=== PATIENT | male | born 1955 | race Caucasian/White ===

== ENCOUNTER → 2017-01-11 | Outpatient (CLI) | payer OTHER, MEDICARE | END | disposition home or self-care (01) | LOC: C.RDSM 12:34 | PROVIDERS: ATTEND Orthopaedic Surgery Sports Medicine | DX: M25.532 Pain in left wrist (principal) ==

== ENCOUNTER → 2017-05-23 | Outpatient (CLI) | payer OTHER, MEDICARE ==
[~2017-05-23] MED LIST: AMLO-114 PO; ASPI325T39 PO; ATOR-22 PO; BENA20TA14 PO; FLV400 PO; GABA-113 PO; HMLIS SQ; INSU1.2I SQ; LSX20 PO; SITA50TA9 PO
--- NOTE | 2017-05-23 16:48 | DIAGNOSTIC IMAGING REPORT ---
R ANKLE MIN 3 VIEWS CLINICAL HISTORY: 61 years-old Male presenting with RIGHT DISTAL FIBULA FX. TECHNIQUE: Frontal, mortise, and lateral views of the right ankle were obtained. COMPARISON: 05/21/2017. FINDINGS: Obliquely oriented nondisplaced fracture of the distal fibula, which appears to involve the syndesmosis. No widening of the medial clear space or additional fracture is evident. Posterior malleolus intact. Degenerative change at the ankle mortise noted. Prominent inferior calcaneal enthesophyte. Os trigonum noted. Atherosclerosis and multiple phleboliths evident. Mild diffuse subcutaneous edema suggested. IMPRESSION: Unchanged appearance of the nondisplaced Salas B fibular fracture (supination external rotation stage II injury). Electronically signed by: Gideon Patel M.D. 05/23/2017 4:47 PM Dictated Date/Time: 05/23/2017 4:44 PM
== END | disposition home or self-care (01) ==
LOC: C.RDSM 10:26
PROVIDERS: ATTEND Physician Assistant
DX: S82.844A Nondisplaced bimalleolar fracture of right lower leg, initial encounter for closed fracture (principal); X58.XXXA Exposure to other specified factors, initial encounter

== ENCOUNTER → 2017-05-30 | Outpatient (CLI) | payer OTHER, MEDICARE ==
--- NOTE | 2017-05-30 15:08 | DIAGNOSTIC IMAGING REPORT ---
R ANKLE MIN 3 VIEWS CLINICAL HISTORY: 61 years-old Male presenting with F/U RIGHT ANKLE FX. TECHNIQUE: Frontal, mortise, and lateral views of the right ankle were obtained. COMPARISON: 05/23/2017. FINDINGS: Persistent fracture plane evident in the distal fibula, which is nondisplaced and obliquely oriented at the level of the tibiofibular syndesmosis. No new malalignment. Bridging callus formation suggested. Ankle mortise intact. No medial malleolus fracture is evident. Os trigonum noted. Atherosclerosis. IMPRESSION: Slight interval healing of the nondisplaced Salas B fibular fracture (supination external rotation stage II injury). No new malalignment. Electronically signed by: Gideon Patel M.D. 05/30/2017 3:07 PM Dictated Date/Time: 05/30/2017 3:05 PM
== END | disposition home or self-care (01) ==
LOC: C.RDSM 13:00
PROVIDERS: ATTEND Physician Assistant
DX: S82.831D Other fracture of upper and lower end of right fibula, subsequent encounter for closed fracture with routine healing (principal); X58.XXXD Exposure to other specified factors, subsequent encounter

== ENCOUNTER → 2017-06-27 | Outpatient (CLI) | payer OTHER, MEDICARE | END | disposition home or self-care (01) | LOC: C.RDSM 11:00 | PROVIDERS: ATTEND Orthopaedic Surgery Sports Medicine | DX: Z09 Encounter for follow-up examination after completed treatment for conditions other than malignant neoplasm (principal) ==

== ENCOUNTER → 2017-08-29 | Outpatient (CLI) | payer OTHER, MEDICARE | END | disposition home or self-care (01) | LOC: C.RDSM 19:37 | PROVIDERS: ATTEND Orthopaedic Surgery Sports Medicine | DX: S82.831A Other fracture of upper and lower end of right fibula, initial encounter for closed fracture (principal); X58.XXXA Exposure to other specified factors, initial encounter ==

== ENCOUNTER → 2018-01-29 | Outpatient (CLI) | payer OTHER, MEDICARE ==
[~2018-01-29] MED LIST changes: -AMLO-114 PO; +AMLO10TA3 PO
== END | disposition home or self-care (01) ==
LOC: C.RDSM 14:04
PROVIDERS: ATTEND Orthopaedic Surgery Sports Medicine
DX: M25.561 Pain in right knee (principal)

== ENCOUNTER → 2018-02-12 | Outpatient (CLI) | payer OTHER, MEDICARE | END | disposition home or self-care (01) | LOC: C.CPL 12:21 | PROVIDERS: ATTEND Orthopaedic Surgery | DX: Z01.818 Encounter for other preprocedural examination (principal); G56.00 Carpal tunnel syndrome, unspecified upper limb ==